=== PATIENT | female | born 1970 | race African-American/Black ===

== ENCOUNTER 2019-08-18 07:45 | Emergency (ER) | payer SELFPAY ==
[2019-08-18 08:00] VITALS: BP 200/112; PULSE 73; RESP 19; TEMP 36.2; O2SAT 100
--- NOTE | 2019-08-18 08:02 | ED.URI ---
HPI - URI/Sore Throat General Chief Complaint: Upper Respiratory Infection Stated Complaint: cough Time Seen by Provider: 08/18/19 08:03 Source: patient Mode of arrival: ambulatory Limitations: no limitations History of Present Illness HPI Narrative: A 49 y/o female presents to the ED with c/o nonproductive cough. Pt states that the cough started 3 days ago and has been constant since. She took Motrin and NyQuil with no relief. Pt denies sinus drainage, congestion, otalgia, fever, wheezing, and SOB. She denies any foreign travel or any exposure to someone who has travelled. MD elicited complaint: cough (Nonproductive) Onset (ago): day(s) (3) Consistency: constant Relieving factors: nothing Associated symptoms: denies other symptoms Treatments prior to arrival: ibuprofen and cold medicine Related Data Home Medications Medication Instructions Recorded Confirmed No Home Medications 08/18/19 08/18/19 Allergies Allergy/AdvReac Type Severity Reaction Status Date / Time No Known Allergies Allergy Verified 08/18/19 08:06 Review of Systems Review of Systems: All systems reviewed & are unremarkable except as noted in HPI and below Constitutional: Constitutional: Denies fever(s) ENT: Denies otalgia, Denies nasal congestion and Denies nasal discharge Respiratory: Respiratory: Reports cough (Nonproductive), Denies dyspnea and Denies wheezing PMFSH Past Medical History Medical History (Updated 08/18/19 @ 09:06 by Colette Nagy MD) Anxiety Fibroids Wrist fracture, left Surgical History Surgical History (Updated 08/18/19 @ 08:03 by Ashanti Varela) History of cholecystectomy Social History Social History (Updated 08/18/19 @ 08:03 by Ashanti Varela) Smoking status: Never smoker Gender identity (if verbalized by the patient): Female Exam Narrative: Exam Narrative: GENERAL: Well-appearing, well-nourished, and in no acute distress. HEAD: Normocephalic, atraumatic EYES: PERRLA and EOMI, conjunctiva clear without discharge EARS: TM's clear bilaterally without erythema or dullness NOSE: Nares clear, no rhinorrhea or epistaxis THROAT:Mucous membranes moist, Oropharynx normal without erythema, exudate, peritonsillar swelling or fluctuance NECK: Supple, without lymphadenopathy or mass RESPIRATORY: No respiratory distress, Airway patent, Respirations non-labored, Clear to auscultation without rales, rhonchi or wheeze HEART: Regular rate and rhythm. No murmur heard. Normal peripheral pulses. ABDOMEN: Soft, nontender, nondistended, normal active bowel sounds. No masses. No rebound or guarding, No organomegaly. EXTREMITIES: No edema, normal strength with full range of motion. SKIN: Warm, dry, normal color without rash NEURO: Alert and oriented x3. CN 2-12 grossly intact. No focal deficits. PSYCH: Normal mood and affect. Course Reevaluation(s) Reevaluation #1: I have discussed with patient that she is hypertensive. She states she checked it the other day and it was 170s. She states she has no insurance and she does not see a doctor regularly. I offered to start medication but I needed an EKG and further testing. PAtient declined and she states she will talk to her PCP and she walked out of ER. Date: 08/18/19 Time: 09:03 Vital Signs Vital signs: Vital Signs Temperature 97.1 F L 08/18/19 08:00 Pulse Rate 73 08/18/19 08:00 Respiratory Rate 19 08/18/19 08:00 Blood Pressure 200/112 H 08/18/19 08:00 Pulse Oximetry 100 08/18/19 08:00 Temperature 97.1 F L 08/18/19 08:00 Pulse Rate 73 08/18/19 08:00 Respiratory Rate 19 08/18/19 08:00 Blood Pressure 200/112 H 08/18/19 08:00 Pulse Oximetry 100 08/18/19 08:05 MDM - URI/Sore Throat Lab Data Labs: Influenza A Screen Negative Reference Range: Negative Influenza B Screen Negative Reference Range: Negative Discharge Plan Discharge Clinical Impression: Upper respiratory inf
[2019-08-18 08:05] VITALS: O2SAT 100
--- NOTE | 2019-08-18 09:03 | PC.NURSE ---
This RN attempted to obtain EKG per Dr. Nagy orders. Patient refused and states I would just like to go and I'll go to my doctor. EDP was made aware, EDP and this RN educated patient on the need for EKG prior to starting her on HTN medication. Pt states that she would rather just leave and go to her doctor.
== END 2019-08-18 09:00 | disposition home or self-care (01) ==
PROVIDERS: Emergency Provider General Practice; PCP Internal Medicine Gastroenterology
DX: J06.9 Acute upper respiratory infection, unspecified (principal)
CPT/HCPCS: 87804; 99283

== ENCOUNTER 2021-03-12 15:47 | Emergency (ER) | payer SELFPAY ==
[2021-03-12 16:39] VITALS: BP 220/114; PULSE 66; RESP 14; TEMP 36.4; O2SAT 99
[2021-03-12 17:52] VITALS: BP 223/122; PULSE 82; RESP 16; O2SAT 100
--- NOTE | 2021-03-12 17:52 | PC.NURSE ---
Provider at bedside to discuss elevated BP in triage with pt. Discussed with pt that she should have labs drawn and should be evaluated and treated for her high blood pressure. Pt declined further treatment or evaluation. Pt stated she no longer wanted to be COVID tested or treated in the ED. Pt declined all further testing and treatment. Pt A&O x4. Ambulated out of ED.
--- NOTE | 2021-03-12 17:52 | ED.GENADULT ---
HPI - General Adult General Chief complaint: Unspecified Stated complaint: wants covid test Time Seen by Provider: 03/12/21 17:35 Source: patient Mode of arrival: ambulatory Limitations: no limitations History of Present Illness HPI narrative: This is a 50-year-old female that presents to the emergency department for a Covid swab. Reports she needs this to be able [facility]. She does not have any current symptoms of Covid. Patient's blood pressure incidentally noted to be elevated. She denies any headache, chest pain, shortness of breath. Related Data Home Medications Medication Instructions Recorded Confirmed No Home Medications 08/18/19 08/18/19 Allergies Allergy/AdvReac Type Severity Reaction Status Date / Time No Known Allergies Allergy Verified 03/12/21 17:20 Review of Systems Review of Systems: CONSTITUTIONAL: Denies fever CARDIOVASCULAR: Denies chest pain, or edema. RESPIRATORY: Denies cough or dyspnea. All systems reviewed & are unremarkable except as noted in HPI and below PMFSH Past Medical History Medical History (Updated 03/12/21 @ 17:53 by Muriel Parkinson PA-C) Anxiety Fibroids Wrist fracture, left Surgical History Surgical History (Updated 08/18/19 @ 08:03 by Ashanti Varela) History of cholecystectomy Social History Social History (Updated 08/18/19 @ 08:03 by Ashanti Varela) Smoking status: Never smoker Gender identity (if verbalized by the patient): Female Exam Narrative: GENERAL: Well-appearing, well-nourished, and in no acute distress. HEAD: Normocephalic, atraumatic. EYES: EOMI. CHEST: Airway patent HEART: Regular rate EXTREMITIES: Normal range of motion. No edema. SKIN: Warm, dry, no rash. NEURO: No focal deficits. Alert and oriented x3. PSYCH: Normal mood and affect Course Vital Signs Vital signs: Vital Signs Temperature 97.6 F 03/12/21 16:39 Pulse Rate 66 03/12/21 16:39 Respiratory Rate 14 03/12/21 16:39 Blood Pressure 220/114 H 03/12/21 16:39 Pulse Oximetry 99 03/12/21 16:39 Temperature 97.6 F 03/12/21 16:39 Pulse Rate 82 03/12/21 17:52 Respiratory Rate 16 03/12/21 17:52 Blood Pressure 223/122 H 03/12/21 17:52 Pulse Oximetry 100 03/12/21 17:52 Medical Decision Making MDM Narrative Medical decision making narrative: Patient presents to the emergency department for a Covid swab. Reports she needs this to be able [facility]. She does not have any current symptoms of Covid. She is afebrile and nontoxic-appearing. Patient's blood pressure incidentally noted to be elevated. She denies any headache, chest pain, shortness of breath. She eloped after being seen by provider before any further evaluation or treatment Vital Signs Vital Signs: Vital Signs Temperature 97.6 F 03/12/21 16:39 Pulse Rate 66 03/12/21 16:39 Respiratory Rate 14 03/12/21 16:39 Blood Pressure 220/114 H 03/12/21 16:39 Pulse Oximetry 99 03/12/21 16:39 Temperature 97.6 F 03/12/21 16:39 Pulse Rate 82 03/12/21 17:52 Respiratory Rate 16 03/12/21 17:52 Blood Pressure 223/122 H 03/12/21 17:52 Pulse Oximetry 100 03/12/21 17:52 Critical Care Time Critical Care Time Critical Care Time: No Discharge Plan Discharge Clinical Impression: Hypertension Qualifiers: Hypertension type: unspecified Qualified Code(s): I10 - Essential (primary) hypertension Patient Disposition: Elopement After Seen by Prov Condition: Guarded Prognosis Prescriptions: No Action No Home Medications RF: 0 Follow-up/Referrals: Vimal,Berkley Fernandes MD [Primary Care Provider] -
== END 2021-03-12 18:00 | disposition left against medical advice (07) ==
PROVIDERS: Emergency Provider Emergency Medicine; PCP Internal Medicine Gastroenterology
DX: I10 Essential (primary) hypertension (principal); F41.9 Anxiety disorder, unspecified
CPT/HCPCS: 99283